=== PATIENT | male | born 1960 | race Two or more races ===

== ENCOUNTER 2017-07-29 12:45 | Inpatient (IN) | payer OTHER ==
[~2017-07-29] VITALS: Ht 167.6 cm; Wt 141.0 kg
[2017-07-29 14:17] LABS: UA SPECIFIC GRAVITY 1.015 (1.005-1.035); microscopic required? YES; urine erythrocyte 3+ (NEGATIVE)
[2017-07-29 14:19] LABS: BASOPHIL % 0.2 % (0-2); PLATELET COUNT 308 x10^3mcL (130-400); RED CELL DISTRIBUTION WIDTH 14.1 % (11.5-14.5)
[2017-07-29 14:27] LABS: CALCIUM 8.4 mg/dL (8.5-10.1); CARBON DIOXIDE 27.3 mmol/L (21-32); CHLORIDE SERUM 100 mmol/L (98-107); CREATININE SERUM 0.9 mg/dL (0.7-1.3); GFR1 > 60 mL/min; GLUCOSE SERUM 107 mg/dL (74-106); POTASSIUM SERUM 3.8 mmol/L (3.5-5.1); SODIUM SERUM 134 mmol/L (136-145)
[2017-07-29 14:39] LABS: ALBUMIN 3.4 g/dL (3.4-5.0); ALKALINE PHOSPHATASE 74 U/L (46-116); ALT/SGPT 44 U/L (16-63); AMYLASE 41 U/L (25-115); AST/SGOT 22 U/L (15-37); BILIRUBIN TOTAL 0.4 mg/dL (0.20-1.00); CHOLESTEROL 169 mg/dL (<200); HDL CHOLESTEROL 53 mg/dL (40-60); LIPASE 106 IU/L (73-393); T4(THYROXINE) 6.2 ug/dL (4.7-13.3); TOTAL PROTEIN, SERUM 7.4 g/dL (6.4-8.2)
[2017-07-29 17:54] LABS: MAGNESIUM 1.9 mg/dL (1.8-2.4); PHOSPHOROUS 2.5 mg/dL (2.5-4.9)
[2017-07-29 18:08] VITALS: BP 148/87
[2017-07-29 19:05] LABS: AMPHETAMINE QUAL UR NONE DETECTED (NEG <=1000)
[2017-07-29 22:12] VITALS: BP 115/54
[2017-07-30 07:29] VITALS: BP 125/68
[2017-07-30 07:39] LABS: PLATELET COUNT 284 x10^3mcL (130-400); RED CELL DISTRIBUTION WIDTH 14.4 % (11.5-14.5)
[2017-07-30 07:56] LABS: CALCIUM 8.4 mg/dL (8.5-10.1); CARBON DIOXIDE 27.7 mmol/L (21-32); CHLORIDE SERUM 101 mmol/L (98-107); GFR1 > 60 mL/min; GLUCOSE SERUM 126 mg/dL (74-106); POTASSIUM SERUM 4.1 mmol/L (3.5-5.1); SODIUM SERUM 136 mmol/L (136-145)
[2017-07-30 10:00] VITALS: BP 131/79
[2017-07-30 11:20] LABS: BAND NEUTROPHIL 4 % (0-10); BASOPHIL 0 % (0-2); MONOCYTE 5 % (0-7); SEGMENTED NEUTROPHILS 77 % (37-75)
[2017-07-30 11:21] LABS: PLATELET MORPHOLOGY PLATELETS INCREASED
[2017-07-30 14:16] VITALS: BP 143/85
[2017-07-30 17:44] VITALS: BP 145/87
[2017-07-30 20:56] VITALS: BP 138/78
[2017-07-31 05:37] VITALS: BP 140/95
[2017-07-31 07:06] LABS: PLATELET COUNT 300 x10^3mcL (130-400); RED CELL DISTRIBUTION WIDTH 14.4 % (11.5-14.5)
[2017-07-31 07:26] LABS: CALCIUM 8.6 mg/dL (8.5-10.1); CARBON DIOXIDE 27.3 mmol/L (21-32); CHLORIDE SERUM 105 mmol/L (98-107); CREATININE SERUM 0.9 mg/dL (0.7-1.3); GFR1 > 60 mL/min; GLUCOSE SERUM 127 mg/dL (74-106); SODIUM SERUM 140 mmol/L (136-145)
[2017-07-31 09:19] VITALS: BP 131/83
[2017-07-31 11:02] LABS: BAND NEUTROPHIL 5 % (0-10); BASOPHIL 0 % (0-2); MONOCYTE 6 % (0-7); SEGMENTED NEUTROPHILS 74 % (37-75)
[2017-07-31 11:04] LABS: PLATELET MORPHOLOGY PLATELETS NORMAL
[2017-07-31 14:03] VITALS: BP 139/85
[2017-07-31 16:51] VITALS: BP 124/74
[2017-07-31 20:36] VITALS: BP 126/77
[2017-08-01 05:35] VITALS: BP 108/68
[2017-08-01 06:19] LABS: BASOPHIL % 0.2 % (0-2); PLATELET COUNT 326 x10^3mcL (130-400)
[2017-08-01 06:41] LABS: CALCIUM 8.6 mg/dL (8.5-10.1); CARBON DIOXIDE 24.5 mmol/L (21-32); CHLORIDE SERUM 101 mmol/L (98-107); CREATININE SERUM 0.9 mg/dL (0.7-1.3); GFR1 > 60 mL/min; GLUCOSE SERUM 115 mg/dL (74-106); POTASSIUM SERUM 3.9 mmol/L (3.5-5.1); SODIUM SERUM 135 mmol/L (136-145)
[2017-08-01 09:16] VITALS: BP 122/78
[2017-08-01 12:41] VITALS: BP 118/74
[2017-08-01 16:41] VITALS: BP 121/65
[2017-08-01 19:20] VITALS: BP 122/80
[2017-08-01 20:32] VITALS: BP 131/78
[2017-08-02 05:49] LABS: RAPID PLASMA REAGIN Non Reactive (Non Reactive)
[2017-08-02 06:21] VITALS: BP 142/86
[2017-08-02 06:24] LABS: BASOPHIL % 0.3 % (0-2); PLATELET COUNT 378 x10^3mcL (130-400); RED CELL DISTRIBUTION WIDTH 14.3 % (11.5-14.5)
[2017-08-02 06:37] LABS: CALCIUM 8.8 mg/dL (8.5-10.1); CARBON DIOXIDE 24.9 mmol/L (21-32); CHLORIDE SERUM 100 mmol/L (98-107); CREATININE SERUM 0.9 mg/dL (0.7-1.3); GFR1 > 60 mL/min; GLUCOSE SERUM 123 mg/dL (74-106); POTASSIUM SERUM 4.1 mmol/L (3.5-5.1); SODIUM SERUM 135 mmol/L (136-145)
[2017-08-02] MEDS ORDERED: LEVAQUIN750 MG PO (07:37)
[2017-08-02] MEDS ORDERED: LAC PO (07:37)
[2017-08-02] MEDS ORDERED: FLO4 PO (07:38)
[2017-08-02 08:55] VITALS: BP 126/83
[2017-08-02 09:48] VITALS: BP 126/83
[2017-08-02 10:16] VITALS: Ht 167.6 cm; Wt 141.0 kg
[2017-08-02] MEDS ORDERED: METFORMIN HYDR500 M1 PO (12:56)
[2017-08-02] MEDS ORDERED: METOPROLOL TART25 M1 PO (12:56)
== END 2017-08-02 13:17 | disposition home or self-care (01) | DRG 871 ==
LOC: ED 12:45 → DU 15:04
PROVIDERS: Emergency Medicine; Family Medicine; Family Medicine Sports Medicine; Student in an Organized Health Care Education/Training Program
DX: A41.9 Sepsis, unspecified organism (principal); N17.0 Acute kidney failure with tubular necrosis; N39.0 Urinary tract infection, site not specified; E44.1 Mild protein-calorie malnutrition; E87.1 Hypo-osmolality and hyponatremia; Z68.43 Body mass index [BMI] 50.0-59.9, adult; E66.01 Morbid (severe) obesity due to excess calories; R31.9 Hematuria, unspecified; R22.1 Localized swelling, mass and lump, neck; E11.65 Type 2 diabetes mellitus with hyperglycemia; D64.9 Anemia, unspecified; E78.5 Hyperlipidemia, unspecified; N40.0 Benign prostatic hyperplasia without lower urinary tract symptoms; K76.0 Fatty (change of) liver, not elsewhere classified
CPT/HCPCS: 36600; 82962; 83880; 87491; 87591; G0480; J1956; J7030; Q0092; Q9967